=== PATIENT | female | born 1960 ===

== ENCOUNTER 2016-07-19 10:57 | Day surgery (SDC) | payer MEDICAID ==
[2016-07-19 11:34] VITALS: BMI 24.7
[2016-07-19] MEDS ORDERED: methylPREDNISolone Depo 80 mg/ml Inj ONE (12:02)
[2016-07-19] MEDS ORDERED: Bupivacaine HCl 0.25% PF (10 ml) Inj ONE (12:02)
[2016-07-19] MEDS ORDERED: Iohexol 300 10 ML ONE (12:02)
[2016-07-19] MEDS ORDERED: Lidocaine 1% Inj (20ml) ONE (12:03)
[2016-07-19] MEDS ORDERED: Propofol 10 mg/ml Inj (20 ML) ONE (12:11)
[2016-07-19] MEDS ORDERED: Lactated Ringer's 1,000 ML IV ONE (12:15)
[2016-07-19] MEDS ORDERED: Lactated Ringer's 1,000 ML IV SCH (12:45)
[2016-07-19] MEDS ORDERED: HYDROmorphone 0.5 mg/0.5 ml ISec ONE ×2 (12:56→13:04)
[2016-07-19] MEDS ORDERED: HYDROmorphone 0.5 mg/0.5 ml ISec IVP PRN (13:00)
--- NOTE | 2016-07-19 14:21 | OP ---
PROCEDURE DATE: 07/19/2016 PREOPERATIVE DIAGNOSIS: Lumbar radiculopathy. POSTOPERATIVE DIAGNOSIS: Lumbar radiculopathy. PROCEDURE: Caudal epidural steroid injection. ANESTHESIOLOGIST: Dr. Boone SURGEON: Dr. Al ANESTHESIA TYPE: Monitored anesthesia care. COMPLICATIONS: None. SPECIMEN: None. PROCEDURE FOLLOWS: After re-discussion of the procedure with the patient including its risks, emily efits, alternatives, outcome data, possibility of no effect or increased pain, the patient consented to the procedure. She denies any recent infections, bleeding tendencies, or being on anticoagulants. The decision was then made to proceed to the OR. The patient was placed on the fluoroscopy table in a prone position with 2 pillows underneath her abd omen. The back was prepped and draped in the usual sterile fashion and sterile technique was adhered to during the entire procedure. The sacral hiatus was first palpated. The skin approximately 5 cm distal to this area was then infiltrated with 1% lidocaine using a 25 gauge needle. Under lateral fl uoroscopic view, a 20 gauge 3-1/2 inch Tuohy needle was then incrementally advanced under fluoroscopi c guidance until tip of needle walked into the sacral hiatal opening. After appropriate placement of the needle, approximately 1 mL of Isovue contrast was injected showing appropriate epidural spread u p to the level of L5. At this point, approximately 10 mL of a 0.25% Marcaine, Depo-Medrol and normal saline mixture was gradually injected. At the end of the procedure, the needles were removed and gold araujo's back was cleaned and dried and Band-Aids were applied. The patient was then transferred to recovery area in good condition without any signs of MICA WASHER GLUER toxicity or any neurological deficit. She will have a followup in the office in approximately 2-4 weeks. En-Damon Al MD cc: [id number] TT: 07/19/2016 14:21:37 en
[2016-07-19 16:16] VITALS: RESP 18
[2016-07-19 16:22] VITALS: BP 135/97; PULSE 51; TEMP 97.7; O2SAT 100
--- NOTE | 2016-07-21 15:42 | RAD ---
Fluoroscopy dated 07/19/2016. History: Epidural. Single AP view of the lower pelvis demonstrates an in situ spinal needle, the tip of which is oriented superiorly with contrast extravasation over the left parasagittal sacrum. There also appears to be droplets of contrast material overlying the right parasymphyseal region. Approximately 8.5 seconds of fluoroscopy time utilized during this procedure. Impression: Fluoroscopic guided pain management procedure.
== END 2016-07-19 15:40 | disposition home or self-care (01) ==
LOC: H.OPSURG 10:57
PROVIDERS: ATTEND Anesthesiology
DX: M54.16 Radiculopathy, lumbar region (principal); Z88.6 Allergy status to analgesic agent

== ENCOUNTER 2017-05-18 13:42 | Observation (INO) | payer MEDICAID ==
[2017-05-18 13:43] VITALS: BMI 24.5
[2017-05-18 13:55] VITALS: BP 122/79; PULSE 59; RESP 16; TEMP 98; O2SAT 98
--- NOTE | 2017-05-18 14:22 | ED PDOC ---
HPI: Chest Pain Time Seen by Provider: 05/18/17 14:02 Chief Complaint (Nursing): Chest Pain Chief Complaint (Provider): Chest Pain History Per: Patient History/Exam Limitations: no limitations Onset/Duration Of Symptoms: Days Current Symptoms Are (Timing): Still Present Additional Complaint(s): 57 year old female presents to the emergency department with a complaint of a mid sternal chest pain with intermittent palpitations described as an electric shock with radiation to the right-side jaw with pain, shortness of breath, and nausea. since yesterday, 05/17/2017. Denies fever or chills. PMD: Dr. Poncho Piedra MD Past Medical History Reviewed: Historical Data, Nursing Documentation, Vital Signs Vital Signs: Last Vital Signs Temp 98.0 F 05/18/17 13:52 Pulse 59 L 05/18/17 13:52 Resp 16 05/18/17 13:52 BP 122/79 05/18/17 13:52 Pulse Ox 98 05/18/17 15:48 - Medical History PMH: Anxiety, Asthma, Back Problems, HTN, Schizophrenia Denies: Diabetes, Hepatitis, HIV, Seizures, Sexually Transmitted Disease - Family History Family History: States: Unknown Family Hx - Home Medications Home Medications: Ambulatory Orders Medication Instructions Recorded ALPRAZolam [Xanax] 1 mg PO TID 07/19/16 Losartan [Cozaar] 50 mg PO DAILY 07/19/16 Oxycodone HCl/Acetaminophen 1 each PO .Q4-6 PRN 07/19/16 [Percocet 10-325 mg Tablet] Paroxetine HCl 30 mg PO DAILY 07/19/16 Quetiapine Fumarate [Seroquel] 400 mg PO HS 07/19/16 Risperidone [Risperdal] 4 mg PO DAILY 07/19/16 - Allergies Allergies/Adverse Reactions: Allergies Allergy/AdvReac Type Severity Reaction Status Date / Time acetaminophen Allergy FATIGUE Verified 05/18/17 13:52 [From Tylenol PM] diphenhydramine HCl Allergy FATIGUE Verified 05/18/17 13:52 [From Tylenol PM] potassium Allergy NAUSEA Verified 05/18/17 13:52 MUSCLE RELAXANT Allergy VOMITING Uncoded 05/18/17 13:52 Review of Systems ROS Statement: Except As Marked, All Systems Reviewed And Found Negative (As per HPI, otherwise negative) Constitutional: Positive for: Other (Right-sided jaw pain). Negative for: Fever , Chills Cardiovascular: Positive for: Chest Pain (Mid-sternal), Palpitations Respiratory: Positive for: Shortness of Breath Physical Exam - Reviewed Nursing Documentation Reviewed: Yes Vital Signs Reviewed: Yes - Physical Exam Appears: Positive for: Non-toxic, No Acute Distress Head Exam: Positive for: NORMAL INSPECTION, NORMOCEPHALIC Skin: Positive for: Normal Color, Warm, Dry Neck: Positive for: Normal, Supple Cardiovascular/Chest: Positive for: Regular Rate, Rhythm, Bradycardia. Negative for: Murmur Respiratory: Positive for: Normal Breath Sounds. Negative for: Accessory Muscle Use, Respiratory Distress Gastrointestinal/Abdominal: Positive for: Normal Exam, Soft. Negative for: Tenderness Extremity: Positive for: Normal ROM, Pedal Edema Neurologic/Psych: Positive for: Alert, Oriented (x3) - Laboratory Results Result Diagrams: 05/18/17 14:10 05/18/17 14:10 - ECG Interpretation Of ECG: Sinus abby @ 50, no ST-T changes. O2 Sat by Pulse Oximetry: 98 (RA) Pulse Ox Interpretation: Normal Medical Decision Making Medical Decision Making: Time: 1411 Initial Impression: Intermittent Chest Pain Initial Plan: --EKG --CMP --Troponin I --Urine DIP --PTT & Prothrombin --Urinalysis --CBC w/ diff --Chest x-ray --Reevaluation Time: 1459 --Aspirin 325 mg PO Time: 1523 --Percocet 5/325 mg PO --Admit to hospital routine: Observation in Telemetry for Chest pain under the care of Dr. Ana Mackey MD Pt evaluated by FP resident who was told she does not want to stay. Patient eloped from ED prior to signing AMA form. Scribe Attestation: Documented by Delaney Pearson, acting as a scribe for Sabrina Kumar MD. Provider Scribe Attestation: All medical record entries made by the Scribe were at my direction and personally dictated by me. I have reviewed the chart and agree that the record accurately reflects my personal performance of the history, physical exam, medical decision making, and the department course for this patient. I have also personally directed, reviewed, and agree with the discharge instructions and disposition. Disposition - Clinical Impression Clinical Impression: Chest pain - Patient ED Disposition Is Patient to be Admitted: Yes (Observation in Telemetry) - Disposition Disposition: Against Medical Advice Disposition Time: 15:23 Condition: UNKNOWN
[2017-05-18 14:30] LABS: BASO # 0.1 K/uL (0.0-0.2); BASO % 0.8 % (0.0-2.0); EOS # 0.1 K/uL (0.0-0.7); EOS % 1.4 % (0.0-4.0); HEMOGLOBIN 12.3 g/dL (12.0-16.0); LYMPH # 3.3 K/uL (1.0-4.3); LYMPH % 47.7 % (20.0-40.0); MEAN CELL VOLUME 93.7 fl (81.0-99.0); MEAN CORPUSCULAR HEMOGLOBIN 30.3 pg (27.0-31.0); MEAN CORPUSCULAR HGB CONC 32.3 g/dL (33.0-37.0); MEAN PLATELET VOLUME 7.6 fl (7.2-11.7); MONO # 0.5 K/uL (0.0-0.8); MONO % 6.8 % (0.0-10.0); NEUT % 43.3 % (50.0-75.0); RBC 4.06 Mil/uL (3.80-5.20); WHITE BLOOD COUNT 6.8 K/uL (4.8-10.8)
[2017-05-18 14:34] LABS: SQUAMOUS EPITHIAL 1 /hpf (0-5); URINE BACTERIA RARE (<OCC); URINE BILIRUBIN NEGATIVE (NEGATIVE); URINE BLOOD NEGATIVE (NEGATIVE); URINE CLARITY CLEAR (Clear); URINE COLOR YELLOW (YELLOW); URINE GLUCOSE (UA) NEG (Normal); URINE LEUKOCYTE ESTERASE NEG Leu/uL (Negative); URINE NITRATE NEGATIVE (NEGATIVE); URINE PROTEIN NEGATIVE (NEGATIVE); URINE UROBILINOGEN 0.2-1.0 mg/dL (0.2-1.0)
[2017-05-18 14:39] LABS: ALB/GLOB RATIO 1.5 (1.0-2.1); ALBUMIN 4.2 g/dL (3.5-5.0); ALT/SGPT 30 U/L (9-52); AST/SGOT 31 U/L (14-36); BLOOD UREA NITROGEN 17 mg/dl (7-17); CALCIUM 9.5 mg/dL (8.4-10.2); GFR AFRICAN-AMERICAN > 60; GFR NON-AFRICAN AMERICAN > 60; PROTHROMBIN TIME 10.8 Seconds (9.8-13.1)
[2017-05-18 14:40] LABS: PARTIAL THROMBOPLASTIN TIME 32.9 Seconds (25.6-37.1)
--- NOTE | 2017-05-18 15:18 | RAD ---
HISTORY: CP COMPARISON: Chest radiograph dated 04/19/2015. FINDINGS: LUNGS: No active pulmonary disease. PLEURA: No significant pleural effusion identified, no pneumothorax apparent. CARDIOVASCULAR: Normal. OSSEOUS STRUCTURES: Unchanged. VISUALIZED UPPER ABDOMEN: Normal. OTHER FINDINGS: None. IMPRESSION: No active disease.
[2017-05-18] MEDS ORDERED: Oxycodone/Acetaminophen 5/325 mg Tab PO STA (15:23)
[2017-05-18] MEDS ORDERED: Oxycodone/Acetaminophen 5/325 mg Tab ONE (15:32)
== END 2017-05-18 16:00 | disposition left against medical advice (07) ==
LOC: H.ER 13:42 → H.ERHOLD 15:23
PROVIDERS: ADMIT Family Medicine Geriatric Medicine; ATTEND Family Medicine Geriatric Medicine
DX: R07.89 Other chest pain (principal); I10 Essential (primary) hypertension; J45.909 Unspecified asthma, uncomplicated; F20.9 Schizophrenia, unspecified; F41.9 Anxiety disorder, unspecified; Z88.6 Allergy status to analgesic agent
CPT/HCPCS: 71045; 80053; 81003; 84484; 85025; 85610; 85730; 99283; G0378

== ENCOUNTER 2017-05-25 11:15 | Emergency (ER) | payer MEDICAID ==
[2017-05-25 11:21] VITALS: BMI 23.2
[2017-05-25 11:34] VITALS: BP 102/63; PULSE 79; RESP 20; TEMP 97.5; O2SAT 96
[2017-05-25] MEDS ORDERED: Levalbuterol 0.63 MG/3 ML Inhal Soln UD IH ONE (11:47)
--- NOTE | 2017-05-25 12:17 | RAD ---
HISTORY: chest pain/ r/o infiltrate COMPARISON: Comparison chest 05/18/2017 TECHNIQUE: Chest PA and lateral FINDINGS: LUNGS: No active pulmonary disease. PLEURA: No significant pleural effusion identified. No pneumothorax apparent. CARDIOVASCULAR: Normal. OSSEOUS STRUCTURES: No significant abnormalities. VISUALIZED UPPER ABDOMEN: Normal. OTHER FINDINGS: None. IMPRESSION: No active disease.
[2017-05-25] MEDS ORDERED: Levalbuterol 0.63 MG/3 ML Inhal Soln UD ONE (12:19)
[2017-05-25 12:53] LABS: ALB/GLOB RATIO 1.3 (1.0-2.1); ALBUMIN 4.6 g/dL (3.5-5.0); ALT/SGPT 57 U/L (9-52); AST/SGOT 53 U/L (14-36); BLOOD UREA NITROGEN 20 mg/dl (7-17); CALCIUM 10.1 mg/dL (8.4-10.2); GFR AFRICAN-AMERICAN > 60; GFR NON-AFRICAN AMERICAN > 60
--- NOTE | 2017-05-25 13:06 | CARD ---
APPROVED REPORT EKG Measurement Heart [id number] <Conclusion> Normal sinus rhythm Possible Left atrial enlargement Borderline ECG
--- NOTE | 2017-05-25 14:54 | ED PDOC ---
HPI: General Adult Time Seen by Provider: 05/25/17 11:36 Chief Complaint (Nursing): Cough, Cold, Congestion Chief Complaint (Provider): cough, congestion History Per: Patient History/Exam Limitations: no limitations Current Symptoms Are (Timing): Intermittent Episodes Severity: Mild Recently: Seen In ED Additional Complaint(s): 57yo female presents to ED c/o cough, congestion, back pain (chronic). Seen here several days ago and eloped after told requires Tele Obs admit. Denies fever, malaise, syncope, headache or weakness. Past Medical History Reviewed: Historical Data, Nursing Documentation, Vital Signs Vital Signs: Last Vital Signs Temp 97.5 F L 05/25/17 11:30 Pulse 79 05/25/17 11:30 Resp 20 05/25/17 11:30 BP 102/63 05/25/17 11:30 Pulse Ox 96 05/25/17 14:57 - Medical History PMH: Anxiety, Asthma, Back Problems, HTN, Schizophrenia Denies: Diabetes, Hepatitis, HIV, Seizures, Sexually Transmitted Disease - Family History Family History: States: Unknown Family Hx - Social History Current smoker - smoking cessation education provided: No - Home Medications Home Medications: Ambulatory Orders Medication Instructions Recorded ALPRAZolam [Xanax] 1 mg PO TID 07/19/16 Losartan [Cozaar] 50 mg PO DAILY 07/19/16 Oxycodone HCl/Acetaminophen 1 each PO .Q4-6 PRN 07/19/16 [Percocet 10-325 mg Tablet] Paroxetine HCl 30 mg PO DAILY 07/19/16 Quetiapine Fumarate [Seroquel] 400 mg PO HS 07/19/16 Risperidone [Risperdal] 4 mg PO DAILY 07/19/16 Ibuprofen [Motrin Tab] 400 mg PO Q6 PRN #12 tab 05/25/17 - Allergies Allergies/Adverse Reactions: Allergies Allergy/AdvReac Type Severity Reaction Status Date / Time acetaminophen Allergy FATIGUE Verified 05/18/17 13:52 [From Tylenol PM] diphenhydramine HCl Allergy FATIGUE Verified 05/18/17 13:52 [From Tylenol PM] potassium Allergy NAUSEA Verified 05/18/17 13:52 MUSCLE RELAXANT Allergy VOMITING Uncoded 05/18/17 13:52 Review of Systems Constitutional: Negative for: Fever, Chills Cardiovascular: Negative for: Chest Pain, Palpitations Respiratory: Positive for: Cough, Wheezing. Negative for: Shortness of Breath Gastrointestinal: Negative for: Nausea, Vomiting Genitourinary Female: Negative for: Dysuria Musculoskeletal: Negative for: Neck Pain Skin: Negative for: Rash, Lesions, Jaundice Neurological: Negative for: Numbness, Headache Physical Exam - Reviewed Nursing Documentation Reviewed: Yes Vital Signs Reviewed: Yes - Physical Exam Appears: Positive for: Well, Non-toxic, No Acute Distress Head Exam: Positive for: ATRAUMATIC, NORMAL INSPECTION, NORMOCEPHALIC Skin: Positive for: Normal Color, Warm, DRY Eye Exam: Positive for: EOMI, Normal appearance, PERRL ENT: Positive for: Normal ENT Inspection Neck: Positive for: Normal, Painless ROM Cardiovascular/Chest: Positive for: Regular Rate, Rhythm Respiratory: Positive for: Normal Breath Sounds. Negative for: Rhonchi, Wheezing, Respiratory Distress Gastrointestinal/Abdominal: Positive for: Bowel Sounds, Soft. Negative for: Tenderness, Guarding Back: Positive for: Normal Inspection Extremity: Positive for: Normal ROM. Negative for: Tenderness, Deformity Neurologic/Psych: Positive for: Alert, Oriented, Other (patient is eccentric but communicative ). Negative for: Motor/Sensory Deficits - Laboratory Results Result Diagrams: 05/25/17 12:15 - ECG O2 Sat by Pulse Oximetry: 96 Medical Decision Making Medical Decision Making: prior chart reviewed labs reviewed CBC normal 5days ago chem unremarkable Slept in ED 4+ hrs, refused duoneb (xopenex ordered instead for noted prior palpitations w albuterol) but she refused that also. trop neg x2 over last several days. No new EKG changes Rx motrin for back pain, followup PMD/[facility] Disposition - Clinical Impression Clinical Impression: Chest congestion, Back pain - Patient ED Disposition Is Patient to be Admitted: No Counseled Patient/Family Regarding: Studies Performed, Diagnosis, Need For Followup - Disposition Referrals: Poncho Piedra MD [Primary Care Provider] - Disposition: Routine/Home Disposition Time: 14:01 Condition: STABLE Prescriptions: Ibuprofen [Motrin Tab] 400 mg PO Q6 PRN #12 tab PRN Reason: Pain, Moderate (4-7) Instructions: Chronic Back Pain (ED), Acute Cough (ED) Forms: [employer] (Ugandan)
== END 2017-05-25 15:30 | disposition home or self-care (01) ==
LOC: H.ER 11:15
DX: R09.89 Other specified symptoms and signs involving the circulatory and respiratory systems (principal); M54.9 Dorsalgia, unspecified; J45.909 Unspecified asthma, uncomplicated; F20.9 Schizophrenia, unspecified; F41.9 Anxiety disorder, unspecified; G89.29 Other chronic pain; I10 Essential (primary) hypertension

== ENCOUNTER 2017-07-24 10:54 | Emergency (ER) | payer MEDICAID ==
[2017-07-24 10:54] VITALS: BMI 23.2
[2017-07-24 11:32] VITALS: PULSE 57; RESP 16; TEMP 98.9; O2SAT 99
[2017-07-24] MEDS ORDERED: Naproxen 500 MG TAB PO STA (11:40)
[2017-07-24] MEDS ORDERED: Naproxen 500 MG TAB PO ONE (11:45)
--- NOTE | 2017-07-24 12:00 | ED PDOC ---
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 Pt reports localized pain and ecchymosis. Pt take oxycodone 15mg for lower back pain regularly. Past Medical History Reviewed: Historical Data, Nursing Documentation, Vital Signs Vital Signs: Last Vital Signs Temp 98.9 F 07/24/17 11:29 Pulse 57 L 07/24/17 11:29 Resp 16 07/24/17 11:29 BP Pulse Ox 99 07/24/17 11:29 - Medical History PMH: Anxiety, Asthma, Back Problems, HTN, Schizophrenia Denies: Diabetes, Hepatitis, HIV, Seizures, Sexually Transmitted Disease - Surgical History Surgical History: No Surg Hx - Family History Family History: States: Unknown Family Hx - Home Medications Home Medications: Ambulatory Orders Medication Instructions Recorded ALPRAZolam [Xanax] 1 mg PO TID 07/19/16 Losartan [Cozaar] 50 mg PO DAILY 07/19/16 Oxycodone HCl/Acetaminophen 1 each PO .Q4-6 PRN 07/19/16 [Percocet 10-325 mg Tablet] Paroxetine HCl 30 mg PO DAILY 07/19/16 Quetiapine Fumarate [Seroquel] 400 mg PO HS 07/19/16 Risperidone [Risperdal] 4 mg PO DAILY 07/19/16 Ibuprofen [Motrin Tab] 400 mg PO Q6 PRN #12 tab 05/25/17 - Allergies Allergies/Adverse Reactions: Allergies Allergy/AdvReac Type Severity Reaction Status Date / Time acetaminophen Allergy FATIGUE Verified 05/18/17 13:52 [From Tylenol PM] diphenhydramine HCl Allergy FATIGUE Verified 05/18/17 13:52 [From Tylenol PM] MUSCLE RELAXANT AdvReac DIZZINESS Uncoded 07/24/17 11:29 Review of Systems ROS Statement: Except As Marked, All Systems Reviewed And Found Negative Constitutional: Negative for: Fever, Chills Musculoskeletal: Positive for: Other (Left great toe pain) Skin: Positive for: Bruising Physical Exam - Reviewed Nursing Documentation Reviewed: Yes Vital Signs Reviewed: Yes - Physical Exam Appears: Positive for: Well, Non-toxic, No Acute Distress Head Exam: Positive for: ATRAUMATIC, NORMAL INSPECTION, NORMOCEPHALIC Skin: Positive for: Warm. Negative for: Normal Color (Ecchymosis of the left great toe ) Neck: Positive for: Normal Respiratory: Negative for: Accessory Muscle Use, Respiratory Distress Pulses-Dorsalis Pedis (L): 2+ Pulses-Dorsalis Pedis (R): 2+ Pulses-Post. Tibialis (L): 2+ Pulses-Post. Tibialis (R): 2+ Back: Positive for: Normal Inspection Extremity: Positive for: Normal ROM, Tenderness (LEft great toe ), Swelling ( Mild ). Negative for: Deformity Neurologic/Psych: Positive for: Alert, Oriented - ECG O2 Sat by Pulse Oximetry: 99 Pulse Ox Interpretation: Normal Medical Decision Making Medical Decision Making: Podiatry consult completed. Surgical shoe given to patient. Disposition - Clinical Impression Clinical Impression: Fractured great toe - Patient ED Disposition Is Patient to be Admitted: No Counseled Patient/Family Regarding: Diagnosis, Need For Followup - Disposition Referrals: Podiatry Clinic [Outside] Disposition: Routine/Home Disposition Time: 14:10 Condition: STABLE Additional Instructions: Please follow-up with podiatry. Instructions: Toe Fracture Forms: [employer] (Dutch)
[2017-07-24 12:02] VITALS: BP 109/76
--- NOTE | 2017-07-24 13:18 | RAD ---
PROCEDURE: Radiographs of the left great toe. TECHNIQUE:: AP radiograph of the left foot, with oblique and lateral view of the left great toe. COMPARISON: None. FINDINGS: BONES: There is an acute longitudinal nondisplaced fracture in the distal phalanx of the great toe. Bone alignment and mineralization are normal. JOINTS: Normal. SOFT TISSUES: There is soft tissue swelling in the great toe. OTHER FINDINGS: None. IMPRESSION: Acute longitudinal nondisplaced fracture in the distal phalanx of the great toe with surrounding soft tissue swelling.
--- NOTE | 2017-07-24 14:07 | CP.PCM.CON ---
History of Present Illness - History of Present Illness History of Present Illness: 57 y/o female seen at bedside for consultation of left foot great toe injury. 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 States she has experienced significant pain when walking since the injury. Denies attempting any other treatment but has tried to stay off it. PMHx: lower back pain, disc pain PSHx: denies All: tylenol, benadryl SocHx: 3-4 cigs/day; denies EtOH or drug use Review of Systems - Review of Systems All systems: reviewed and no additional remarkable complaints except (per HPI) Past Patient History - Past Social History Smoking Status: Current Some Days Smoker - CARDIAC Hx Hypertension: Yes - PULMONARY Hx Asthma: Yes - NEUROLOGICAL Hx Seizures: No - HEMATOLOGICAL/ONCOLOGICAL Hx Human Immunodeficiency Virus (HIV): No - MUSCULOSKELETAL/RHEUMATOLOGICAL Hx Back Pain: Yes (from a fall) - GENITOURINARY/GYNECOLOGICAL Hx Sexually Transmitted Disorders: No - PSYCHIATRIC Hx Anxiety: Yes Hx Schizophrenia: Yes - SURGICAL HISTORY Other/Comment: miscarriage - ANESTHESIA Hx Anesthesia: No Meds Allergies/Adverse Reactions: Allergies Allergy/AdvReac Type Severity Reaction Status Date / Time acetaminophen Allergy FATIGUE Verified 05/18/17 13:52 [From Tylenol PM] diphenhydramine HCl Allergy FATIGUE Verified 05/18/17 13:52 [From Tylenol PM] MUSCLE RELAXANT AdvReac DIZZINESS Uncoded 07/24/17 11:29 Physical Exam - Constitutional Appears: Well, Non-toxic, No Acute Distress - Extremities Exam Additional comments: LLE focused: Vasc: DP/PT pulses 2/4. Temperature gradient warm to cool. Localized edema noted to L hallux. CFT < 3 sec to all digits Derm: Ecchymosis noted to L hallux at dorsal and distal aspects of distal phalanx. No open lesions, no erythema, no maceration Neuro: Protective sensation grossly intact Ortho: Moderate tenderness to palpation or manipulation of L hallux - Neurological Exam Neurological exam: Alert, Oriented x3 - Psychiatric Exam Psychiatric exam: Normal Affect, Normal Mood Results - Vital Signs Recent Vital Signs: Last Vital Signs Temp 98.9 F 07/24/17 11:29 Pulse 57 L 07/24/17 11:29 Resp 16 07/24/17 11:29 BP 109/76 07/24/17 12:02 Pulse Ox 99 07/24/17 12:01 Assessment & Plan - Assessment and Plan (Free Text) Assessment: 57 y/o female with left hallux distal phalanx nondisplaced fracture Plan: Pt seen and evaluated in ED Discussed with attending Dr. Machuca X-rays reveal nondisplaced longitudinal fracture of distal phalanx of left hallux Hallux wrapped with Coban and pt dispensed surgical shoe Pt advised to keep dressing clean dry and intact and use bag when showering Pt to remain full protected WB with use of surgical shoe at all times Pt to follow up in [facility] podiatry clinic on Tuesday 08/[address] Machuca Thank you for this consult
== END 2017-07-24 14:10 | disposition left against medical advice (07) ==
LOC: H.ER 10:54
DX: S92.402A Displaced unspecified fracture of left great toe, initial encounter for closed fracture (principal); W22.8XXA Striking against or struck by other objects, initial encounter; Y92.89 Other specified places as the place of occurrence of the external cause; F20.9 Schizophrenia, unspecified; F41.9 Anxiety disorder, unspecified; I10 Essential (primary) hypertension

== ENCOUNTER 2017-11-09 10:01 | Emergency (ER) | payer MEDICAID ==
[2017-11-09 10:01] VITALS: BMI 23.2
[2017-11-09 10:20] VITALS: BP 130/60; PULSE 51; RESP 17; TEMP 97; O2SAT 98
--- NOTE | 2017-11-09 10:53 | ED PDOC ---
HPI: Female Pain Time Seen by Provider: 11/09/17 10:16 Chief Complaint (Nursing): Female Genitourinary Chief Complaint (Provider): Pelvoc pressure, rash on face History Per: Patient Additional Complaint(s): 57 yo female, PMH of Anxiety, presents to ED with complaints of vaginal pressure x months. States it feels like a balloon. Denies any pain at this time. no discharge, no bleeding. Pt reports that she is not sexually active Additionally, Pt notes rash to left lower lip x 4 days. pt saw clinic at the onset of symptoms and was given abreva which she reports using; however, she needs a refill. Past Medical History Reviewed: Nursing Documentation, Vital Signs Vital Signs: Last Vital Signs Temp 97 F L 11/09/17 10:16 Pulse 51 L 11/09/17 10:16 Resp 17 11/09/17 10:16 BP 130/60 11/09/17 10:16 Pulse Ox 98 11/09/17 10:16 - Medical History PMH: Anxiety, Asthma, Back Problems, HTN, Schizophrenia Denies: Diabetes, Hepatitis, HIV, Seizures, Sexually Transmitted Disease - Family History Family History: States: Unknown Family Hx - Home Medications Home Medications: Ambulatory Orders Medication Instructions Recorded ALPRAZolam [Xanax] 1 mg PO TID 07/19/16 Losartan [Cozaar] 50 mg PO DAILY 07/19/16 Oxycodone HCl/Acetaminophen 1 each PO .Q4-6 PRN 07/19/16 [Percocet 10-325 mg Tablet] Paroxetine HCl 30 mg PO DAILY 07/19/16 Quetiapine Fumarate [Seroquel] 400 mg PO HS 07/19/16 Risperidone [Risperdal] 4 mg PO DAILY 07/19/16 Ibuprofen [Motrin Tab] 400 mg PO Q6 PRN #12 tab 05/25/17 - Allergies Allergies/Adverse Reactions: Allergies Allergy/AdvReac Type Severity Reaction Status Date / Time acetaminophen Allergy FATIGUE Verified 05/18/17 13:52 [From Tylenol PM] diphenhydramine HCl Allergy FATIGUE Verified 05/18/17 13:52 [From Tylenol PM] MUSCLE RELAXANT AdvReac DIZZINESS Uncoded 07/24/17 11:29 Review of Systems ROS Statement: Except As Marked, All Systems Reviewed And Found Negative Genitourinary Female: Positive for: Pelvic Pain Skin: Positive for: Rash Physical Exam - Reviewed Nursing Documentation Reviewed: Yes Vital Signs Reviewed: Yes - Physical Exam Appears: Positive for: Well, Non-toxic, No Acute Distress Head Exam: Positive for: ATRAUMATIC, NORMAL INSPECTION, NORMOCEPHALIC Skin: Positive for: Warm, Rash (crusted over papules noted to rigth lwer lip. mild usrrounding edrythema, consistent with herpes) Eye Exam: Positive for: EOMI, Normal appearance, PERRL ENT: Positive for: Normal ENT Inspection Neck: Positive for: Normal, Painless ROM Cardiovascular/Chest: Positive for: Regular Rate, Rhythm Respiratory: Positive for: CNT, Normal Breath Sounds Gastrointestinal/Abdominal: Positive for: Normal Exam, Soft Pelvic Exam: Positive for: External Exam Normal, Other (mild prolapse noted). 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 Disposition - Clinical Impression Clinical Impression: Bladder prolapse, Cold sore - Patient ED Disposition Is Patient to be Admitted: No - Disposition Disposition: Routine/Home Disposition Time: 10:56 Condition: STABLE Instructions: Cold Sores (Oral Herpes) (DC), Cystocele and Rectocele Repair - POA Present On Arrival: None
== END 2017-11-09 11:05 | disposition home or self-care (01) ==
LOC: H.ER 10:01
DX: N81.2 Incomplete uterovaginal prolapse (principal); B00.1 Herpesviral vesicular dermatitis; I10 Essential (primary) hypertension

== ENCOUNTER 2018-03-24 15:46 | Emergency (ER) | payer MEDICAID ==
[2018-03-24 15:46] VITALS: BMI 23.2
[2018-03-24 16:07] VITALS: BP 149/88; PULSE 57; RESP 18; TEMP 97.7; O2SAT 99
--- NOTE | 2018-03-24 17:24 | ED PDOC ---
HPI: CCC, URI, Sore Throat Time Seen by Provider: 03/24/18 16:14 Chief Complaint (Nursing): ENT Problem Chief Complaint (Provider): ENT Problem History Per: Patient History/Exam Limitations: no limitations Onset/Duration Of Symptoms: Persistent (x1 week) Current Symptoms Are (Timing): Still Present Additional Complaint(s): 58 year old female with pmHx of HTN and anxiety, presents to ED with a complaint of sore throat associated with headache, nasal congestion, general malaise, subjective fever, and chills for 1 week. She reports noticing some pus in the back of her throat 3 days ago and has been taking oxycodone and Xanax for relief. Otherwise, she denies any difficulty swallowing, nausea, vomiting, diarrhea, ear pain, cough, shortness of breath, recent sick contacts, or receiving flu shot this year. Patient states she is able to stay hydrated despite throat pain. PCP: Dr. Poncho Pierda Past Medical History Reviewed: Historical Data, Nursing Documentation, Vital Signs Vital Signs: Last Vital Signs Temp 97.7 F 03/24/18 16:06 Pulse 57 L 03/24/18 16:06 Resp 18 03/24/18 16:06 BP 149/88 03/24/18 16:06 Pulse Ox 99 03/24/18 16:06 - Medical History PMH: Anxiety, Asthma, Back Problems, HTN, Schizophrenia Denies: Diabetes, Hepatitis, HIV, Seizures, Sexually Transmitted Disease - Family History Family History: States: Unknown Family Hx - Home Medications Home Medications: Ambulatory Orders Medication Instructions Recorded ALPRAZolam [Xanax] 1 mg PO TID 07/19/16 Losartan [Cozaar] 50 mg PO DAILY 07/19/16 Oxycodone HCl/Acetaminophen 1 each PO .Q4-6 PRN 07/19/16 [Percocet 10-325 mg Tablet] Quetiapine Fumarate [Seroquel] 400 mg PO HS 07/19/16 RX: Paroxetine HCl 30 mg PO DAILY 07/19/16 Risperidone [Risperdal] 4 mg PO DAILY 07/19/16 RX: Ibuprofen [Motrin Tab] 400 mg PO Q6 PRN #12 tab 05/25/17 Acyclovir 5% [Zovirax 5% Oint] 1 applic TOP 5XD #1 tube 11/09/17 Fluticasone Propionate [Flonase] 1 spr NS DAILY PRN 5 Days bottle 03/24/18 RX: Ibuprofen [Motrin Tab] 600 mg PO Q6 PRN 7 Days tab 03/24/18 - Allergies Allergies/Adverse Reactions: Allergies Allergy/AdvReac Type Severity Reaction Status Date / Time acetaminophen Allergy FATIGUE Verified 05/18/17 13:52 [From Tylenol PM] diphenhydramine HCl Allergy FATIGUE Verified 05/18/17 13:52 [From Tylenol PM] MUSCLE RELAXANT AdvReac DIZZINESS Uncoded 07/24/17 11:29 Review of Systems ROS Statement: Except As Marked, All Systems Reviewed And Found Negative Constitutional: Positive for: Fever (subjective), Chills, Malaise ENT: Positive for: Nose Congestion, Throat Pain (with pus). Negative for: Ear Pain, Other (dysphagia) Respiratory: Negative for: Cough, Shortness of Breath Gastrointestinal: Negative for: Nausea, Vomiting, Diarrhea Neurological: Positive for: Headache Physical Exam - Reviewed Nursing Documentation Reviewed: Yes Vital Signs Reviewed: Yes - Physical Exam Appears: Positive for: Uncomfortable Head Exam: Positive for: ATRAUMATIC, NORMAL INSPECTION, NORMOCEPHALIC Skin: Positive for: Normal Color Eye Exam: Positive for: Normal appearance, EOMI, PERRL ENT: Positive for: TM Is/Are (nonbulging and nonerythematous), Nasal Congestion (swollen turbinates), Pharyngeal Erythema (bilaterally), Tonsillar Exudate (right-sided x1). Negative for: Tonsillar Swelling Neck: Positive for: Normal, Supple Cardiovascular/Chest: Positive for: Regular Rate, Rhythm Respiratory: Positive for: Normal Breath Sounds. Negative for: Respiratory Distress Lymphatic: Negative for: Adenopathy Neurologic/Psych: Positive for: Alert, Oriented. Negative for: Motor/Sensory Deficits - ECG O2 Sat by Pulse Oximetry: 99 (RA) Pulse Ox Interpretation: Normal Medical Decision Making Medical Decision Making: Time: 1713 Initial Plan: * Flonase * Rapid influenza A B * Rapid strep 1832 Labs reviewed and negative for strep and flu. Patient informed it is likely viral pharyngitis and educated on no need for antibiotic use at this time; treatment will be symptomatic. Scribe Attestation: Documented by Jolynn Sanz, acting as a scribe for IVETH Saab Provider Scribe Attestation: All medical record entries made by the Scribe were at my direction and personally dictated by me. I have reviewed the chart and agree that the record accurately reflects my personal performance of the history, physical exam, medical decision making, and the department course for this patient. I have also personally directed, reviewed, and agree with the discharge instructions and disposition. Disposition - Clinical Impression Clinical Impression: Upper respiratory infection, Viral pharyngitis - Patient ED Disposition Is Patient to be Admitted: No Counseled Patient/Family Regarding: Studies Performed, Diagnosis - Disposition Referrals: Poncho Piedra MD [Family Provider] - Disposition: Routine/Home Disposition Time: 18:34 Condition: STABLE Additional Instructions: Return to ER if you develop trouble swallowing and cannot tolerate drinking fluids or if you develop worsening SELBY or visual changes. Take Ibuprofen for bodyaches/fever. Flonase as needed for nasal congestion. Prescriptions: Fluticasone Propionate [Flonase] 1 spr NS DAILY PRN 5 Days bottle PRN Reason: Nasal Congestion RX: Ibuprofen [Motrin Tab] 600 mg PO Q6 PRN 7 Days tab PRN Reason: Pain, Moderate (4-7) Instructions: Viral Upper Respiratory Infection, Adult (DC) Forms: [employer] (Vincentian) Print Language: SERBIAN
== END 2018-03-24 18:45 | disposition home or self-care (01) ==
LOC: H.ER 15:46
DX: J06.9 Acute upper respiratory infection, unspecified (principal); J02.9 Acute pharyngitis, unspecified